=== PATIENT | female | born 2000 | race Caucasian/White ===

== ENCOUNTER 2024-05-15 00:21 | Emergency (ER) | payer OTHER ==
--- OUTSIDE RECORDS SUMMARY | 2024-05-15 00:24 | XMS REPORT | Continuity of Care Document ---
Author Name Unknown Address [address] [facility] [address] [place] [address] [facility] thconnect Address [address] [facility] [address] [place] [address] Care Team Providers Care Tobacco Classer Name Role Phone Unavailable Unavailable Unavailable Encounters Start Date/Time End Date/Time Encounter Type Admission Type Attending Clinicians [facility] Facility Care Department Encounter ID Source 2024-05-10 11:25:01 2024-05-10 11:25:01 Outpatient SFA SFA [id number] Craig Crespo 2024-04-26 09:32:39 2024-04-26 09:32:39 Outpatient SFA SFA [id number] Craig Crespo 2024-04-20 15:11:44 2024-04-20 15:11:44 Outpatient SFA SFA [id number] Craig Crespo 2024-03-03 13:11:29 2024-03-03 13:11:29 Outpatient SFA SFA [id number] Craig Crespo 2024-02-04 14:10:10 2024-02-04 14:10:10 Outpatient SFA SFA [id number] Craig Crespo
[2024-05-15 01:26] LABS: Absolute Basophils 0.1 K/uL (0-0.5); Absolute Eosinophils 0.1 K/uL (0-0.5); Absolute Lymphocytes (CBC) 3.7 K/uL (0.7-4.9); Absolute Monocytes 0.9 K/uL (0.1-1.3); Absolute Neutrophil 13.1 K/uL (1.8-8.0); Basophils % 0.7 % (0-1.3); Eosinophils % 0.6 % (0-4.4); Hematocrit 35.2 % (36.0-45.0); Lymphocytes % 20.4 % (15.3-44.8); MCH 27.8 pg (27.0-35.0); MCV 81.8 fL (80-100); Monocytes % 5.1 % (3.3-12.3); Neutrophils % 73.2 % (41.7-73.7); Platelets 415 thou/uL (152-406); Red Cell Distribution Width 14.6 % (12.1-15.2)
[2024-05-15 01:33] LABS: Specific Gravity 1.025 (1.005-1.030); Sqamous Epithelial <5 /HPF (None Seen); Urine Bacteria <20 /HPF (<20); Urine Bilirubin NEGATIVE (Negative); Urine Blood Negative (Negative); Urine Clarity Extremely Turbid (Clear); Urine Color Yellow (Yellow); Urine Culture Reflex Order REFLEXED; Urine Glucose NEGATIVE (Negative); Urine Ketones NEGATIVE (Negative); Urine Microscopic Reflex YN ORDER UMIC; Urine Nitrite NEGATIVE (Negative); Urine Protein TRACE (Negative); Urine RBC None Seen /HPF (None Seen); Urine Urobilinogen 1+ (Normal)
[2024-05-15] MEDS ORDERED: NA CHLORIDE 0.9% 1,000 ML ONE (01:46)
[2024-05-15 02:09] LABS: Anion Gap 10.5 mEq/L (5.0-15.0); Potassium 3.5 mEq/L (3.5-5.1)
--- NOTE | 2024-05-15 03:01 | RAD REPORT ---
EXAM: US , Limited CLINICAL HISTORY: ABD PAIN TECHNIQUE: Real-time limited ultrasound of the maternal uterus with image documentation. COMPARISON: No relevant prior studies available. FINDINGS: Fetus: Single intrauterine gestation. FL: 3.15 cm, 19 weeks 6 days. Heart rate: cardiac activity measures 165 BPM. Placenta: The placenta is anterior in location. No previa. Cervix: The cervix measures 5 cm in length. IMPRESSION: Single live intrauterine gestation. Electronically signed by: Bozena Bocanegra MD 05/15/2024 02:32 AM [facility] Due to temporary technical issues with the [email or web address] e[employer]ifter scribe reporting system, reports are being sign ed by the in-house radiologist without review as a courtesy to ensure prompt reporting the interpreting rad iologist is fully responsible for the content of the report. Transcribed Date/Time: 05/15/2024 3:01 AM
--- NOTE | 2024-05-15 03:29 | EDPHYS ---
Physician Documentation [facility] Name: Mariya Castro Age: 24 yrs Sex: Female : 2000 Arrival Date: 05/15/2024 Time: 00:21 Bed 2 Private MD: ED Physician Adán Zuñiga HPI: 05/15 01:40 This 24 yrs old Female presents to ER via Wheelchair with complaints of EST 20 WKS ms3 GESTATION, PT STATES SHE IS HAVING SHARP PAINS IN HER PELVIC AREA APRROX EVERY 45 MINUTES SINCE 1930 ON 05/14/24. 01:40 24-year-old female G1, P0 with LMP of 12/24/2023 presents to the emergency department ms3 for left lower quadrant cramping that is every 30 minutes that began at 7:30 PM. Patient denies nausea, vomiting, diarrhea, fevers, chills, dysuria, vaginal discharge, vaginal bleeding.. 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 - Infectious Disease History:: Denies. - Social history:: Smoking status: Patient denies any tobacco usage or history of. Patient/guardian denies using alcohol, street drugs. ROS: 01:40 Constitutional: Negative for fever, and chills. Cardiovascular: Negative for chest ms3 pain, and palpitations. Respiratory: Negative for shortness of breath, cough, wheezing, and pleuritic chest pain, 01:40 MS/Extremity: Negative for injury and deformity, Skin: Negative for injury, rash, and discoloration, Neuro: Negative for headache, weakness, numbness, tingling. 01:40 Abdomen/GI: Positive for abdominal cramps, Exam: 01:40 Constitutional: This is a well developed, well nourished patient who is awake, alert, ms3 and in no acute distress. Cardiovascular: Regular rate and rhythm with a normal S1 and S2. No gallops, murmurs, or rubs. Normal PMI, no JVD. No pulse deficits. Respiratory: Lungs have equal breath sounds bilaterally, clear to auscultation and percussion. No rales, rhonchi or wheezes noted. No increased work of breathing, no retractions or nasal flaring. Abdomen/GI: Soft, non-tender, with normal bowel sounds. No distension or tympany. No guarding or rebound. No evidence of tenderness throughout. Skin: Warm, dry with normal turgor. Normal color with no rashes, no lesions, and no evidence of cellulitis. MS/ Extremity: Pulses equal, no cyanosis. Neurovascular intact. Full, normal range of motion. 04:16 : Patient defers, ms3 Vital Signs: 00:44 BP 126 / 67; Pulse 102; Resp 16 S; Temp 98.1(O); Pulse Ox 99% on R/A; Weight 139.71 kg lg3 (R); Height 6 ft. 1 in. (R); Pain 5/10; 01:49 BP 119 / 48; Pulse 89; Resp 18; Pulse Ox 100% ; cp4 03:18 BP 113 / 85; Pulse 86; Resp 18; Pulse Ox 100% ; cp4 03:50 BP 127 / 56; Pulse 87; Resp 18; Pulse Ox 99% ; cp4 00:44 Body Mass Index 40.64 (139.71 kg, 185.42 cm) lg3 00:44 Pain Scale: Adult lg3 MDM: 00:41 Medical Screening Exam initiated ms3 01:40 Differential diagnosis: [place] samuel, UTI. ms3 04:14 Data reviewed: vital signs, nurses notes, lab test result(s), radiologic studies, and ms3 as a result, I will discharge patient. Consideration of Admission/Observation Escalation of care including admission/observation considered. Discussed transfer of patient to facility with obstetrics and labor and delivery unit for monitoring and patient declines.. Counseling: I had a detailed discussion with the patient and/or guardian regarding the historical points, exam findings, and any diagnostic results supporting the discharge/admit diagnosis, lab results, radiology results, the need for outpatient follow up, to return to the emergency department if symptoms worsen or persist or if there are any questions or concerns that arise at home. Refusal of service: The patient/guardian displays adequate decision making capability and despite a detailed discussion of alternatives, benefits, risks, and consequences refuses: Transfer to facility with obstetrics and labor and delivery unit. ED course: Patient has decided to refuse pelvic exam and transfer to hospital with labor and delivery for monitoring. At this time, I reevaluated the patient and discussed the following: a. Capacity: The patient has the capacity to communicate, understand information, and logically process the decision making process. b. Communication of risks: At bedside, I discussed potential risks, outcomes, and alternative approaches in a patientcentered manner. The patient was informed of the specific risks of harm, disability, including worsening condition and . The patient understands that they are welcome to return at any time to complete the workup. Patient is discharged from my care with informed refusal.. 05/15 00:42 Order name: Abo/rh Typing; Complete Time: 03:22 ms3 05/15 00:42 Order name: Basic Metabolic Panel; Complete Time: 03:22 ms3 05/15 00:42 Order name: CBC with Diff; Complete Time: 01:40 ms3 05/15 00:42 Order name: Quantitative Hcg; Complete Time: 03:22 ms3 05/15 00:42 Order name: Urinalysis w/ reflexes; Complete Time: 01:40 ms3 05/15 01:37 Order name: Urine Culture EDMS 05/15 00:42 Order name: US OB Limited ms3 05/15 00:42 Order name: IV Saline Lock; Complete Time: 00:55 ms3 05/15 00:42 Order name: Labs collected and sent; Complete Time: 00:55 ms3 05/15 00:42 Order name: NPO; Complete Time: 00:44 ms3 Administered Medications: 01:49 Drug: NS 0.9% IV 1000 ml IV at 1000 ml once; to be given as a bolus over 60 minutes cp4 Route: IV; Rate: 1000 ml; Site: right antecubital; 03:54 Follow up: Response: No adverse reaction; IV Status: Completed infusion cp4 Disposition Summary: 05/15/24 03:28 Discharge Ordered Notes: Location: Home ms3 Condition: Stable ms3 Diagnosis - Lower abdominal pain, unspecified ms3 - 19 weeks gestation of ms3 Followup: ms3 - With: Private Physician - When: 1 - 2 days - Reason: Recheck today's complaints Discharge Instructions: - Discharge Summary Sheet ms3 - Abdominal Pain During ms3 - Care ms3 Forms: - Medication Reconciliation Form ms3 - Antibiotic Education ms3 - Prescription Opioid Use ms3 - Patient Portal Instructions ms3 - Leadership Thank You Letter ms3 Signatures: Dispatcher [employer] Danna Lucio, RN RN lg3 Adán Zuñiga DO DO ms3 Angela Ochoa cp4
--- NOTE | 2024-05-15 03:29 | ER ---
Nurse's Notes [facility] Name: Mariya Castro Age: 24 yrs Sex: Female : 2000 Arrival Date: 05/15/2024 Time: 00:21 Bed 2 Private MD: Diagnosis: Lower abdominal pain, unspecified;19 weeks gestation of Presentation: 05/15 00:44 Chief complaint: Patient states: intermittent left lower abdominal pain onset 1930. lg3 pain 5/10 denies N/V/D. Coronavirus screen: Client denies travel out of the [place] in the last 14 days. At this time, the client does not indicate any symptoms associated with coronavirus-19. Ebola Screen: No symptoms or risks identified at this time. Initial Sepsis Screen: Does the patient meet any 2 criteria? No. Patient's initial sepsis screen is negative. Does the patient have a suspected source of infection? No. Patient's initial sepsis screen is negative. Risk Assessment: Do you want to hurt yourself or someone else? Patient reports no desire to harm self or others. Onset of symptoms was May 14, 2024. 00:44 Method Of Arrival: Wheelchair lg3 00:44 Acuity: BASILIO 3 lg3 Triage Assessment: 00:46 General: Appears in no apparent distress. comfortable, Behavior is calm, cooperative. lg3 Pain: Complains of pain in left lower quadrant Pain does not radiate. Pain currently is 0 out of 10 on a pain scale. at worst was 5 out of 10 on a pain scale. Quality of pain is described as crampy, Is intermittent, lasting a few seconds. EENT: No deficits noted. No signs and/or symptoms were reported regarding the EENT system. Neuro: No deficits noted. [place] Agitation-Sedation Scale (RASS): 0 - Alert and Calm Level of Consciousness is awake, alert, obeys commands, Oriented to person, place, time, situation. Cardiovascular: No deficits noted. Denies chest pain, shortness of breath, Capillary refill < 3 seconds. Respiratory: No deficits noted. Airway is patent Respiratory effort is even, unlabored, Respiratory pattern is regular, symmetrical. GI: Abdomen is round non-distended, obese, Reports lower abdominal pain, cramping, Patient currently denies diarrhea, nausea. : No signs and/or symptoms were reported regarding the genitourinary system. Denies burning with urination, discharge, vaginal bleeding. Derm: No deficits noted. No signs and/or symptoms reported regarding the dermatologic system. Skin is intact, is healthy with good turgor, Skin is dry, Skin is normal, Skin temperature is warm. Musculoskeletal: No deficits noted. No signs and/or symptoms reported regarding the musculoskeletal system. Circulation, motion, and sensation intact. Range of motion: intact in all extremities. 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 - Infectious Disease History:: Denies. - Social history:: Smoking status: Patient denies any tobacco usage or history of. Patient/guardian denies using alcohol, street drugs. Screenin:48 [facility] ED Fall Risk Assessment (Adult) History of falling in the last 3 months, cp4 including since admission No falls in past 3 months (0 pts) Confusion or Disorientation No (0 pts) Intoxicated or Sedated No (0 pts) Impaired Gait No (0 pts) Mobility Assist Device Used No (0 pt) Altered Elimination No (0 pt) Score/Fall Risk Level 0 - 2 = Low Risk Oriented to surroundings, Maintained a safe environment, Assessed \T\ reinforced patient's understanding of fall precautions, Hourly rounding (assess needs \T\ fall precautionary measures) done. Abuse screen: Denies threats or abuse. Denies injuries from another. Nutritional screening: No deficits noted. Tuberculosis screening: No symptoms or risk factors identified. Assessment: 00:48 General: Appears in no apparent distress. uncomfortable, Behavior is calm, cooperative, cp4 appropriate for age. Pain: Complains of pain in abdomen and left lower quadrant Pain does not radiate. Pain currently is 5 out of 10 on a pain scale. Neuro: Level of Consciousness is awake, alert, obeys commands, Oriented to person, place, time, situation. Cardiovascular: Patient's skin is warm and dry. Respiratory: Airway is patent Respiratory effort is even, unlabored. GI: Reports lower abdominal pain, Pain is 5 out of 10 on a pain scale. : No signs and/or symptoms were reported regarding the genitourinary system. EENT: No signs and/or symptoms were reported regarding the EENT system. Derm: No signs and/or symptoms reported regarding the dermatologic system. Musculoskeletal: No signs and/or symptoms reported regarding the musculoskeletal system. Vital Signs: 00:44 BP 126 / 67; Pulse 102; Resp 16 S; Temp 98.1(O); Pulse Ox 99% on R/A; Weight 139.71 kg lg3 (R); Height 6 ft. 1 in. (R); Pain 5/10; 01:49 BP 119 / 48; Pulse 89; Resp 18; Pulse Ox 100% ; cp4 03:18 BP 113 / 85; Pulse 86; Resp 18; Pulse Ox 100% ; cp4 03:50 BP 127 / 56; Pulse 87; Resp 18; Pulse Ox 99% ; cp4 00:44 Body Mass Index 40.64 (139.71 kg, 185.42 cm) lg3 00:44 Pain Scale: Adult lg3 ED Course: 00:24 Patient arrived in ED. jj6 00:37 Adán Zuñiga DO is Attending Physician. ms3 00:46 Triage completed. lg3 00:46 Arm band placed on right wrist. lg3 00:48 Bed in low position. Call light in reach. Side rails up X2. cp4 00:48 No provider procedures requiring assistance completed. cp4 00:55 Angela Ochoa is Primary Nurse. cp4 00:55 Inserted saline lock: 20 gauge in right antecubital area, using aseptic technique. br2 Blood collected. Flushed with 10 mL NS. 01:28 US OB Limited In Process Unspecified. EDMS 03:52 Provided Education on: abdominal pain, . cp4 03:52 intact, bleeding controlled, No redness/swelling at site. Pressure dressing applied. cp4 Administered Medications: 01:49 Drug: NS 0.9% IV 1000 ml IV at 1000 ml once; to be given as a bolus over 60 minutes cp4 Route: IV; Rate: 1000 ml; Site: right antecubital; 03:54 Follow up: Response: No adverse reaction; IV Status: Completed infusion cp4 Medication: 00:48 VIS not applicable for this client. cp4 Outcome: 03:28 Discharge ordered by . ms3 03:52 Discharged to home ambulatory, cp4 03:52 Condition: stable 03:52 Discharge instructions given to patient, family, Instructed on discharge instructions, follow up and referral plans. Demonstrated understanding of instructions, follow-up care, 03:54 Patient left the ED. cp4 Signatures: Dispatcher [employer] EDMS Danna Amaral RN RN lg3 Adán Zuñiga, DO ms3 Juliette Rodriguez Christina cp4 Hedy Wong RN RN br2
[2024-05-15 04:14] VITALS: TEMP 98.1
[2024-05-15 04:17] VITALS: BP 127/56; O2SAT 99
== END 2024-05-15 03:54 | disposition home or self-care (01) ==
LOC: ER 00:21
DX: O26.892 Other specified pregnancy related conditions, second trimester (principal); Z3A.19 19 weeks gestation of pregnancy
CPT/HCPCS: 96361; 87088; 85025; 81001; 87086; 80048; 36415; 86900; 86901; 84702; 76815; 96360; 99284; J7030